=== PATIENT | female | born 1935 | race Caucasian/White ===

== ENCOUNTER → 2017-03-20 | Outpatient (CLI) | payer OTHER, MEDICARE ==
[~2017-03-20] MED LIST: ADVAIR 500-501 EACH INH; ARICEPT10 M1 PO; ASPIRIN EC81 M1 PO; ASPIRIN81 M2 PO; ATORVASTATIN CA40 MG PO; AVELOX 400 MG400 M1 PO; AZELAST NASAL137 MC1 NASAL; CITRACAL + D M1 EACH PO; EVISTA PO; FISH OIL 1,0001 EAC5 PO; FOLIC ACID1 MG PO; HYDROCHLOROTH12.5 MG PO; HYDROCHLOROTHIA25 M1 PO; HYDROCODON-ACE1 EAC7 PO; HYDROXYCHLOROQ200 M1 PO; ITRACONAZOLE100 MG PO; LEVAQUIN 250 M250 MG PO; LEVOTHROID75 MCG PO; LEVOTHYROXIN0.075 MG PO; LEVOTHYROXINE0.05 MG PO; LISINOPRIL10 MG PO; LUTEIN6 MG PO; MUCINEX TA600 MG/TA2 PO; OMEPRAZOLE 20 M20 M1 PO; OPTIVE EYE DROP30 ML OPHTHALMIC; PREDNISONE 10 M10 M1 PO; PREDNISONE 5 MG5 M1 PO; SALSALATE 500M500 MG PO; SALSALATE PO; SIMVASTATIN40 MG PO; VITAMIN D-32000 UNIT PO; VITAMIN D31000 UNIT PO; XOPENEX HF1 UDINHALE INH
== END ==
LOC: RAD 04:05
DX: Z12.31 Encounter for screening mammogram for malignant neoplasm of breast (principal)

== ENCOUNTER → 2017-07-11 | Outpatient (CLI) | payer OTHER, MEDICARE ==
[~2017-07-11] VITALS: Ht 157.5 cm; Wt 43.5 kg
[~2017-07-11] MED LIST changes: +CALCIUM 600 +1 EAC1 PO; +FLONASE 0.05%50 MCG NASAL; +LEVOXYL50 MCG PO; +LISINOPRIL5 MG PO; +SYSTANE BALANCE10 ML OPHTHALMIC
--- NOTE | ~2017-07-11 | P ---
[facility] [place] [address] PROCEDURE REPORT Name: JACKIEKATHY M Room #: REG [facility]#: [id number] Admission: 07/11/17 Attend Phys: Edmond Hughes MD Discharge: Date of : 31 Report #: [id number] THIS REPORT FOR: //name// CC: Edmond Seth BRIEF HISTORY: The patient is an 81-year-old woman with history of colon polyps for high risk screening colonoscopy. PREOPERATIVE DIAGNOSIS: High risk screening colonoscopy due to history of colon polyps. POSTOPERATIVE DIAGNOSES: 1. Multiple colon polyps. 2. Moderate sigmoid diverticulosis coli. MEDICATIONS: Deep sedation per anesthesia. SPECIMEN: 1. Cecal polyps x 2. 2. Polyps from proximal ascending colon and distal ascending colon. 3. Polyp, proximal transverse colon. 4. Polyp at 60 cm. 5. Polyp at 30 cm. 6. Polyp at 25 cm. ESTIMATED BLOOD LOSS: 3 mL. PROCEDURE: Colonoscopy to cecum and terminal ileum with snare polypectomy and biopsy. FINDINGS: Prior to deep sedation, procedure of colonoscopy was discussed with the patient as well as potential risks and its complications. She indicates she understands and desires to proceed. With the patient placed in left lateral decubitus position, digital examination was completed which revealed lax anal sphincter mechanism, but no other abnormalities were noted. Subsequently, the [email or web address] video colonoscope was introduced rectally and advanced under direct vision to the cecum and this was done with minimal difficulty. The cecum was identified by the ileocecal valve and the appendiceal orifice. I was able to visualize the mouth of the ileocecal valve and could see a villous pattern, but I could not intubate the distal ileum. At that point, the scope was slowly withdrawn and careful circumferential views were obtained. Within the cecum, a flat mucus covered polyp about 7-8 mm in greatest dimension was removed by cold snare polypectomy. In addition, in the same vicinity, a diminutive polyp was seen and removed by biopsy. These were both placed in the same container. As the scope was withdrawn, another polyp was seen in the proximal ascending colon [facility] [address] [place] [address] PROCEDURE REPORT Name: KATHY MEJIA Room #: REG [facility].#: [id number] Admission: 07/11/17 Attend Phys: Edmond Hughes MD Discharge: Date of : 33 Report #: [id number] that was fairly flat and mucus covered about 6-7 mm in greatest dimension, removed by cold snare polypectomy. In the distal ascending colon, a diminutive polyp was seen and removed by biopsy. Again, these were both placed in the same container. Scope was further withdrawn and in the proximal transverse colon, a 6-8 mm sessile polyp was seen and removed by snare polypectomy. We withdrew the scope further and at 60 cm, a 6 mm polyp was seen and removed by cold snare polypectomy. At 50 cm ____ DICTATION ENDS HERE <ELECTRONICALLY SIGNED> By: Edmond Hughes MD 07/13/17 1331 1019 1249 Edmond Hughes MD /nt
--- NOTE | ~2017-07-11 | P ---
[facility] [place] [address] PROCEDURE REPORT Name: JACKIECHRISTINEKATHY M Room #: REG [facility]#: [id number] Admission: 07/11/17 Attend Phys: Edmond Hughes MD Discharge: Date of : 33 Report #: [id number] THIS REPORT FOR: //name// CC: Edmond Richmond DO DATE OF SERVICE: 07/11/2017 BRIEF HISTORY: The patient is an 81-year-old woman with a history of Hernandes esophagus. She is currently not on a proton pump inhibitor. She does have heartburn intermittently, often several times weekly. She also has noted some hoarseness and some intermittent solid food dysphagia. PREOPERATIVE DIAGNOSIS: Hernandes esophagus and reflux disease with symptoms. POSTOPERATIVE DIAGNOSES: 1. Grade D erosive esophagitis. 2. Moderate hiatus hernia, 6-7 cm. 3. Diffuse gastritis. MEDICATIONS: Deep sedation with propofol per Anesthesia. SPECIMEN: 1. Biopsies of gastritis. 2. Biopsies of distal esophagus. ESTIMATED BLOOD LOSS: 3 mL. PROCEDURE: EGD with biopsy. FINDINGS: Prior to propofol sedation, procedure of upper endoscopy was discussed with the patient as well as potential risks and its complications. She indicates she understands and desires to proceed. DESCRIPTION OF PROCEDURE: With the patient in left lateral decubitus position, the [employer] video endoscope was inserted in the cervical esophagus under direct vision without difficulty. Examination of this organ through its entire length revealed normal esophageal mucosa proximally. However, as we advanced the scope into the mid and distal esophagus, erosive changes were seen. Confluent 360 degree ulcerative changes were seen at the GE junction consistent with a grade D erosive esophagitis. There was modest narrowing, but not tight narrowing at the GE junction. The scope passed easily through this area. In addition, due to the esophagitis, I could not clearly see the Hernandes mucosa. No mass lesions were seen. The esophagitis did have a benign appearance. The scope was advanced into a fairly large 6-7 cm hiatus hernia. The mucosa in the hernia was [facility] [address] [place] [address] PROCEDURE REPORT Name: KATHY MEJIA Room #: REG [facility]..#: [id number] Admission: 07/11/17 Attend Phys: Edmond Hughes MD Discharge: Date of : 33 Report #: [id number] unremarkable. Scope was advanced fully into the stomach, was examined on end view as well as retroflexed views. There was a diffuse gastritis. No ulcers were seen. There was no evidence of outlet obstruction. She does use Meloxicam and again no ulcers were seen. Biopsies obtained of the gastritis. Upon retroflexion, the hiatus hernia was identified again. The pylorus, duodenal bulb and post duodenal sweep were inspected and noted to be unremarkable. At that point, scope was withdrawn and careful circumferential views confirmed the above findings. Biopsy taken of the gastritis and also biopsy of distal esophagus. She did have a brief component of desaturation, so the scope was withdrawn and we decided not to return the scope after the patient was supported for desaturation. We will proceed with colonoscopy at this time. CONDITION OF THE PATIENT UPON DISCHARGE: Following the procedure, the patient was drowsy and prepared for colonoscopy. INSTRUCTIONS TO THE PATIENT AND FAMILY AT THE TIME OF DISCHARGE: We will have her start omeprazole 20 mg daily. Advised antireflux measures. We will follow up on biopsies and make further recommendations. However, in view of this significant esophagitis, we will likely have her return in several months for repeat endoscopy and biopsy. Her symptoms of hoarseness may be related to reflux. Dysphagia may be due to esophagitis. If she still has dysphagia when she returns, we will dilate her esophagus at that time. <ELECTRONICALLY SIGNED> By: Edmond Hughes MD 07/13/17 1331 0928 1019 Edmond Hughes MD /nt
--- NOTE | ~2017-07-11 | P ---
[facility] [place] [address] PROCEDURE REPORT Name: JACKIECHRISTINEKATHY M Room #: REG [facility]#: [id number] Admission: 07/11/17 Attend Phys: Edmond Hughes MD Discharge: Date of : 33 Report #: [id number] THIS REPORT FOR: //name// CC: Edmond Richmond Please note that I started this dictation and I got disconnected, so I am going to restart the dictation over the number on the disconnected report was [id number], you can disregard that dictation and this current dictation will take the place of [id number]. PREOPERATIVE DIAGNOSES: History of colon polyps, high risk screening colonoscopy. POSTOPERATIVE DIAGNOSES: 1. Multiple colon polyps. 2. Moderate sigmoid diverticulosis coli. MEDICATIONS: Deep sedation with propofol per anesthesia. SPECIMENS: 1. Cecal polyps times 2. 2. Polyp, proximal ascending colon and 2 polyps in the distal ascending colon. 3. Polyp, proximal transverse colon. 4. Polyp at 60 cm. 5. Polyp at 30 cm. 6. Polyp at 25 cm. ESTIMATED BLOOD LOSS: 3 mL. PROCEDURE: Colonoscopy to cecum and terminal ileum with snare polypectomy and biopsy. FINDINGS: Prior to propofol sedation, the procedure of colonoscopy discussed with the patient as well as potential risks, benefits, and complications. She indicates she understands and desires to proceed. With the patient in left lateral decubitus position, digital examination was completed, which revealed anal sphincter mechanism. Subsequently, Fuji video colonoscope was introduced into the rectum and advanced under direct vision to the cecum. Cecum was identified by the ileocecal valve and the appendiceal orifice. I could advance the tip of the scope into mouth of the ileocecal valve, but I could not deeply intubate the ileum. At that point, scope was slowly withdrawn and careful circumferential views obtained. Upon slow withdrawal of the scope, the prep was noted to be good. The mucosa was within normal limits, normal vascular pattern, normal light reflex. As we withdrew the scope, 2 polyps were seen in the cecum, one was a 6-7 mm flat mucus [facility] [address] [place] [address] PROCEDURE REPORT Name: KATHY MEJIA Room #: REG [facility].#: [id number] Admission: 07/11/17 Attend Phys: Edmond Hughes MD Discharge: Date of : 33 Report #: [id number] covered polyp, removed by cold snare polypectomy and the other was a diminutive cecal polyp removed by biopsy. These were both placed in the same container. A polyp was seen in the proximal ascending and distal ascending colon. The proximal one was flat and about 6-7 mm and mucus covered and removed by hot snare polypectomy. Distally, a polyp was removed by biopsy forceps and also cold snare. The larger polyp was no more than 5 mm. In the proximal transverse colon, there was a 7-8 mm sessile polyp was seen and removed by cold snare polypectomy. At 60 cm, a 5-6 mm sessile polyp was seen and removed by cold snare polypectomy. At 50 cm, old tattoo buck were seen at a previous polypectomy site, no neoplastic changes were seen at the tattoo site. At 30 and 25 cm, there were also 5-6 mm sessile polyps were seen and removed by cold snare polypectomy. As we withdrew the scope through the sigmoid colon, there was noted to be moderate sigmoid diverticular disease without endoscopic evidence of diverticulitis. Scope was withdrawn in the rectum. Upon retroflexion, no abnormalities were seen. Scope was withdrawn. The patient tolerated the procedure well. CONDITION OF THE PATIENT UPON DISCHARGE: Following procedure, the patient drowsy, arousable and conversant, she will be discharged home when fully ambulatory. INSTRUCTIONS TO THE PATIENT AND FAMILY AT THE TIME OF DISCHARGE: Multiple polyps identified and removed as described above. We will follow up on the path and make further recommendations. I would suggest high fiber diet. <ELECTRONICALLY SIGNED> By: Edmond Hughes MD 07/13/17 1331 1025 1054 Edmond Hughes MD /nt
--- NOTE | ~2017-07-11 | S ---
[facility] [place] [address] [address] [place] [address] SURGICAL PATH RPT PROCEDURE Name: KATHY MEJIA Room #: REG [facility].#: [id number] Admission: 07/11/17 Date of : 31 Discharge: Report #: [id number] Path Case #: [id number] PATHOLOGY REPORT COLLECTION DATE: 07/11/2017 RECEIVED DATE: 07/12/2017 SUBMITTING PHYS: Dr. Edmond Hughes OTHER PHYS: Ingrid Rcihmond DO SPECIMEN(S) RECEIVED: A.Bx of gastritis B.Bx of esophagus C.Bx of cecal polyp and polypectomy D.Bx of polyp colon proximal ascending colon and distal ascending colon E.Polypectomy at proximal transverse F.Polypectomy at 60 cm G.Polyp at 30 cm H.Polyp at 25 cm * * * * * * * * * * * * FINAL DIAGNOSIS: A. "Biopsy of gastritis," biopsy: - Gastric mucosa with mild reactive changes and mild predominantly chronic inflammation. - Negative H. pylori immunohistochemical stain (block A1); control reacted appropriately. B. "Biopsy of esophagus," biopsy: - Esophageal squamous mucosa and gastric cardiac type mucosa with reactive changes and acute and chronic inflammation/ulceration; no intestinal metaplasia or dysplasia seen. C. "Biopsy of cecal polyp and polypectomy," biopsy: - Sessile serrated polyp; no dysplasia seen. D. "Biopsy of polyp colon proximal ascending colon and distal ascending colon," biopsy: -Tubular adenoma; no high-grade dysplasia. - Hyperplastic polyp. E. "Polypectomy at proximal transverse," biopsy: - Tubular adenoma; no high-grade dysplasia. F. "Polypectomy at 60 cm," biopsy: - Tubular adenoma; no high-grade dysplasia. G. "Polyp at 30 cm," biopsy: - Tubular adenoma; no high-grade dysplasia. H. "Polyp at 25 cm," biopsy: - Tubular adenoma; no high-grade dysplasia. (CLW:mgr; 07/15/2017) [address] [address] SURGICAL PATH RPT PROCEDURE Name: KATHY MEJIA Room #: REG [facility].#: [id number] Admission: 07/11/17 Date of : 31 Discharge: Report #: [id number] Path Case #: [id number] PATHOLOGIST: Sarina Juarez M.D. REPORT ELECTRONICALLY SIGNED BY: Sarina Juarez M.D. DATE/TIME: 07/15/2017 17:01 * * * * * * * * * * * * GROSS PATHOLOGY: A. Received in formalin labeled "Kathy Mejia, biopsy of gastritis," are eight segments of frost soft tissue measuring 1.4 x 1.3 x 0.2 cm in aggregate dimensions and ranging from 0.2 to 0.6 cm in maximum dimension. The specimen is submitted entirely in cassette A1. B. Received in formalin labeled "Kathy Mejia, biopsy of esophagus," are four segments of frost soft tissue measuring 0.7 x 0.7 x 0.2 cm in aggregate dimensions and ranging from 0.3 to 0.5 cm in maximum dimension. The specimen is submitted entirely in cassette B1. C. Received in formalin labeled "Kathy Jose, biopsy of cecal polyp and polypectomy," are two segments of frost soft tissue measuring 0.9 x 0.8 x 0.2 cm in aggregate dimensions and ranging from 0.3 to 0.9 cm in maximum dimension. The specimen is submitted entirely in cassette C1. D. Received in formalin labeled "Kathy Jose, biopsy colon polyp distal ascending colon polypectomy and biopsy of polyp proximal ascending colon," are three segments of frost soft tissue measuring 1.6 x 1.0 x 0.4 cm in aggregate dimensions and ranging from 0.4 to 1.6 cm in maximum dimension. The specimen is submitted entirely in cassette D1. E. Received in formalin labeled "Kathy Jose, polypectomy at proximal transverse," are two segments of frost soft tissue measuring 1.4 x 0.9 x 0.2 cm in aggregate dimensions and ranging from 1.3 to 1.4 cm in maximum dimension. The specimen is submitted entirely in cassette E1. F. Received in formalin labeled "Kathy Jose, polyp at 60 cm," is a segment of frost soft tissue measuring 0.6 cm in maximum dimension. The specimen is submitted entirely in cassette F1. G. Received in formalin labeled "Kathy Jose, polyp at 30 cm," is a segment of frost soft tissue measuring 0.6 cm in maximum dimension. The specimen is submitted entirely in cassette G1. H. Received in formalin labeled "Kathy Jose, polyp at 25 cm," are two segments of frost soft tissue measuring 1.0 x 0.8 x 0.4 cm in aggregate dimensions and ranging from 0.7 to 0.8 cm in maximum dimension. The specimen is submitted entirely in cassette H1. (CAA; 07/12/2017) CLINICAL HISTORY: Pre-op diagnosis: History of Hernandes's Post-op diagnosis: Hiatal hernia, erosive esophagitis, diverticulosis, colon polyps [address] [address] SURGICAL PATH RPT PROCEDURE Name: KATHY MEJIA Room #: REG [facility].#: [id number] Admission: 07/11/17 Date of : 31 Discharge: Report #: [id number] Path Case #: [id number] INITIAL CPT CODE(S): A; 08952, 41820 B; 54674 C; 08354 D; 15940 E; 98046 F; 04445 G; 19025 H; 32410 Professional services performed by [facility] at [place] [address], [place] [address] Technical services performed by [facility] at [address] [place] [address], [facility] [address] [place] [address]. [facility] [address] [place] [address] PHONE: [phone] DIRECTOR: Cristofer Gunn M.D. * * * END OF REPORT * * *
== END | disposition home or self-care (01) ==
LOC: GI 07:17
DX: Z09 Encounter for follow-up examination after completed treatment for conditions other than malignant neoplasm (principal); K63.5 Polyp of colon; K22.70 Barrett's esophagus without dysplasia; K44.9 Diaphragmatic hernia without obstruction or gangrene; K22.10 Ulcer of esophagus without bleeding; I10 Essential (primary) hypertension; Z95.1 Presence of aortocoronary bypass graft; K21.9 Gastro-esophageal reflux disease without esophagitis; M06.9 Rheumatoid arthritis, unspecified; I48.91 Unspecified atrial fibrillation; J45.909 Unspecified asthma, uncomplicated; Z98.890 Other specified postprocedural states; E03.9 Hypothyroidism, unspecified
CPT/HCPCS: 62110; 62900

== ENCOUNTER → 2018-04-02 | Outpatient (CLI) | payer OTHER, MEDICARE | LOC: RAD 11:03 | DX: Z12.31 Encounter for screening mammogram for malignant neoplasm of breast (principal); J45.909 Unspecified asthma, uncomplicated; K21.9 Gastro-esophageal reflux disease without esophagitis; M06.9 Rheumatoid arthritis, unspecified; I48.91 Unspecified atrial fibrillation ==